=== PATIENT | female | born 1995 | race Two or more races ===

== ENCOUNTER 2019-10-29 02:01 | Emergency (ER) | payer MEDICAID, OTHER ==
[~2019-10-29] VITALS: Ht 165.1 cm; Wt 75.4 kg
[2019-10-29 02:03] VITALS: BP 127/68
--- NOTE | 2019-10-29 02:12 | NUR ---
Patient ambulated steadily into room. Alert and oriented, answers questions clearly and concisely. Reports toothache intermittently being painful for about three days with it becoming unbearable. Appreciable swelling of the left jaw, tender to the touch. No redness. Awaiting for assessment by provider.
[2019-10-29] MEDS ORDERED: AMOXICILLIN 500 MG CAPSULE PO STA (02:16)
[2019-10-29] MEDS ORDERED: AMOXICILLIN 500 MG CAPSULE ONE (02:27)
[2019-10-29] MEDS ORDERED: HYDROcodone/APAP 5/325 TABLET ONE (02:28)
[2019-10-29] MEDS ORDERED: HYDROcodone/APAP 5/325 TABLET PO ONE (02:30)
== END 2019-10-29 02:37 | disposition home or self-care (01) ==
LOC: ED 02:25
DX: K02.9 Dental caries, unspecified (principal)
CPT/HCPCS: 99283